=== PATIENT | male | born 1975 | race Caucasian/White ===

== ENCOUNTER 2024-05-30 13:12 | Inpatient (IN) ==
[2024-05-30] MEDS: Lactated Ringers 1000 ml BAG 1,000 ML IV ONE ×2 (14:01→14:04)
[2024-05-30] MEDS: Acetaminophen IV 1 GM/100ML 1,000 MG/100 ML BAG IV ONE (14:04)
[2024-05-30 14:21] LABS: Activated Partial Thrombo Time 31.3 seconds (26.0-38.0); INR 1.17 (0.85-1.14)
[2024-05-30 14:22] LABS: Hematocrit 39.2 % (38-53); Hemoglobin 13.6 g/dL (13.2-16.3); Mean Corpuscular Hemoglobin 28.4 pg (27-33); Mean Corpuscular Hgb Conc 34.6 g/dL (31-36); Red Blood Count 4.78 10^6/uL (4.06-5.63); Red Cell Distribution Width 14.8 % (12-17); White Blood Count 7.7 10^3/uL (3.6-10.2)
[2024-05-30 14:39] LABS: Urine Appearance Turbid; Urine Bacteria Absent /HPF (Absent); Urine Bilirubin Negative (Negative); Urine Blood 2+ (Negative); Urine Glucose 4+ (>=1000 mg/dL) (Negative); Urine Ketones 1+ (Negative); Urine Nitrite Negative (Negative); Urine Protein 1+ (>=30 mg/dL) (Negative); Urine Red Blood Cell Trace(0-2/hpf) /HPF (0-Trace); Urine Squamous Epithelial Cell Present /HPF (Absent); Urine Urobilinogen Negative (Negative); Urine White Blood Cell 1+(6-10/hpf) /HPF (0-Trace); Urine pH 5.5 (5.0-8.0)
[2024-05-30 14:49] LABS: Albumin/Globulin Ratio 1.3 (1-3); C Reactive Protein 220.41 mg/L (<8.01); Calcium 8.5 mg/dL (8.6-10.3); Creatinine, Serum 1.82 mg/dL (0.67-1.17); Globulin 3.1 g/dL (2-4); Total Bilirubin 1.9 mg/dL (0.2-1.0); Total Protein 7.1 g/dL (6.4-8.9); eGFR CKD-EPI 44.7 (>60)
[2024-05-30 15:08] LABS: ABS Lymphocytes 0.5 10^3/uL (1.0-4.8); ABS Monocytes 0.2 10^3/uL (0.0-1.1); Lymphocyte % 6.9 %; Mean Platelet Volume 8.6 fL (7.5-11.2); Platelet Count 100 10^3/uL (150-450)
[2024-05-30] MEDS: Piperacillin/Tazobac 3.375 BAG 3.375 GM/100 ML BAG IV ONE (15:35)
[2024-05-30 15:55] LABS: High Sensitivity Troponin 1 Hr 279 pg/mL (<20)
[2024-05-30] MEDS: Vancomycin 1,500 MG in NS 0.9% 250 ml 250 ML IVPB ONE (16:02)
[2024-05-30 16:30] LABS: Urine Color Light-Yellow
[2024-05-30 17:02] LABS: Hepatitis B Surface Antigen Nonreactive (Nonreactive)
[2024-05-30 17:07] LABS: Hepatitis A Ab IgM Negative (Negative)
[2024-05-30 17:08] LABS: Hepatitis B Core IgM Nonreactive (Nonreactive)
[2024-05-30 17:20] LABS: Hepatitis C Antibody Negative (Negative)
[2024-05-30] MEDS ORDERED: Ondansetron ODT 4 mg TAB 4 MG TAB SL PRN (17:54)
[2024-05-30] MEDS: ZOSYN 3.375 GM Q8H per EXTENDED INFUSION IV SCH (20:32)
[2024-05-30] MEDS: Lactated Ringers 1000 ml BAG 1,000 ML IV SCH (20:32)
[2024-05-30 20:46] LABS: Albumin 3.7 g/dL (3.5-5.7); Albumin/Globulin Ratio 1.3 (1-3); Calcium 8.4 mg/dL (8.6-10.3); Creatinine, Serum 1.96 mg/dL (0.67-1.17); Globulin 2.8 g/dL (2-4); Potassium 3.8 mmol/L (3.5-5.0); Total Bilirubin 2.3 mg/dL (0.2-1.0); Total Protein 6.5 g/dL (6.4-8.9); eGFR CKD-EPI 40.9 (>60)
[2024-05-30] MEDS ORDERED: Enoxaparin 30 MG/0.3 ML SYR SUBCUT SCH (21:00)
[2024-05-30 21:01] LABS: TSH Ultra Thyroid Stim Horm 0.51 mcIU/mL (0.34-5.60)
[2024-05-30 21:48] LABS: High Sensitivity Troponin 1 Hr 274 pg/mL (<20)
[2024-05-30] MEDS: Enoxaparin 40 MG/0.4 ML SYR SUBCUT SCH (22:05)
[2024-05-30] MEDS ORDERED: Zosyn per Pharmacy NOTE FOLLOW UP SCH (23:00)
[2024-05-30 23:30] LABS: High Sensitivity Troponin 3 Hr 313 pg/mL (<20)
[2024-05-31 06:12] LABS: Albumin 3.3 g/dL (3.5-5.7); Albumin/Globulin Ratio 1.2 (1-3); Calcium 7.9 mg/dL (8.6-10.3); Creatinine, Serum 1.98 mg/dL (0.67-1.17); Globulin 2.7 g/dL (2-4); HDL Cholesterol 6.4 mg/dL; Magnesium 1.8 mg/dL (1.9-2.7); Potassium 3.9 mmol/L (3.5-5.0); Total Bilirubin 1.2 mg/dL (0.2-1.0); eGFR CKD-EPI 40.4 (>60)
[2024-05-31 06:36] LABS: Hematocrit 34.4 % (38-53); Hemoglobin 11.9 g/dL (13.2-16.3); Mean Corpuscular Hemoglobin 28.2 pg (27-33); Mean Corpuscular Hgb Conc 34.7 g/dL (31-36); Mean Corpuscular Volume 81.4 fL (80-97); Red Blood Count 4.23 10^6/uL (4.06-5.63)
[2024-05-31 08:01] LABS: ABS Lymphocytes 0.8 10^3/uL (1.0-4.8); ABS Monocytes 0.5 10^3/uL (0.0-1.1); ABS Neutrophils 5.7 10^3/uL (1.5-7.6); Lymphocyte % 10.9 %; Mean Platelet Volume 9.2 fL (7.5-11.2); Nucleated Red Blood Cells % 0.1 %/100WBC (0.0-0.8); Platelet Count 73 10^3/uL (150-450)
[2024-05-31] MEDS: Sulfur Hexaflouride MICROSPHR 25 MG VIAL IV PRN (09:22)
[2024-05-31] MEDS: [UNRECOGNIZED DRUG - REMARK] PO SCH (09:27)
[2024-05-31] MEDS: Lactated Ringers 1000 ml BAG 1,000 ML IV SCH (11:17)
[2024-05-31] MEDS ORDERED: Dextrose 50% Syringe 50 ml 25 GM/50 ML SYRINGE IV PUSH PRN (13:28)
[2024-05-31] MEDS: ceFAZolin 2 GM PREMIX 2 GM/50 ML BAG IV SCH (14:56)
[2024-05-31 15:03] LABS: High Sensitivity Troponin 1 Hr 206 pg/mL (<20)
[2024-05-31 15:19] LABS: Creatinine, Serum 2.11 mg/dL (0.67-1.17); Potassium 3.6 mmol/L (3.5-5.0); eGFR CKD-EPI 37.4 (>60)
[2024-05-31] MEDS: Insulin GLARGINE 100 un/ml 10 ml VIAL SUBCUT SCH (20:52)
[2024-06-01 07:06] LABS: Calcium 7.9 mg/dL (8.6-10.3); Creatinine, Serum 1.98 mg/dL (0.67-1.17); Magnesium 1.9 mg/dL (1.9-2.7); Potassium 3.6 mmol/L (3.5-5.0); eGFR CKD-EPI 40.4 (>60)
[2024-06-01 07:14] LABS: Hematocrit 32.1 % (38-53); Hemoglobin 11.1 g/dL (13.2-16.3); Mean Corpuscular Hemoglobin 28.2 pg (27-33); Mean Corpuscular Hgb Conc 34.7 g/dL (31-36); Mean Corpuscular Volume 81.2 fL (80-97); Red Blood Count 3.96 10^6/uL (4.06-5.63); White Blood Count 8.7 10^3/uL (3.6-10.2)
[2024-06-01 07:52] LABS: Mean Platelet Volume 9.2 fL (7.5-11.2); Platelet Count 88 10^3/uL (150-450)
[2024-06-01] MEDS: ceFAZolin 2 GM PREMIX 2 GM/50 ML BAG IV SCH (10:20)
[2024-06-01 11:36] LABS: Urine Creatinine Concentration 58.12 mg/dL (20.00-370.00); Urine TP Creat Ratio 0.43 mg/mg
[2024-06-01] MEDS ORDERED: Flumazenil 0.5 mg/5 ml 0.1 MG/ML 5 ml VIAL ONE (13:23)
[2024-06-01] MEDS ORDERED: fentaNYL 100 mcg/2 ml 50 MCG/ML VIAL ONE (13:23)
[2024-06-01] MEDS ORDERED: Midazolam 5 mg/5 ml VIAL 1 mg/ml 5 ml VIAL (5 mg) ONE (13:23)
[2024-06-01] MEDS ORDERED: Naloxone 0.4 mg VIAL 0.4 mg/ml 1 ml VIAL ONE (13:23)
[2024-06-01] MEDS: fentaNYL 100 mcg/2 ml 50 MCG/ML VIAL IV SLOW PU ONE (14:54)
[2024-06-01] MEDS: Midazolam 10 mg/10 ml VIAL 1 mg/ml 10 ml VIAL (10 mg) IV SLOW PU ONE (14:56)
[2024-06-02 05:55] LABS: Hematocrit 32.1 % (38-53); Hemoglobin 11.4 g/dL (13.2-16.3); Mean Corpuscular Hgb Conc 35.3 g/dL (31-36); Mean Platelet Volume 9.3 fL (7.5-11.2); Platelet Count 117 10^3/uL (150-450); Red Blood Count 3.92 10^6/uL (4.06-5.63); White Blood Count 9.5 10^3/uL (3.6-10.2)
[2024-06-02 06:18] LABS: Calcium 7.9 mg/dL (8.6-10.3); Creatinine, Serum 1.92 mg/dL (0.67-1.17); Magnesium 1.9 mg/dL (1.9-2.7); Potassium 3.4 mmol/L (3.5-5.0); eGFR CKD-EPI 41.9 (>60)
[2024-06-02] MEDS: Potassium Chlor 20 meq TAB.ER PO SCH (08:48)
[2024-06-02] MEDS: Magnesium Sulfate IV 1GM/100ML 1 GM/100 ML BAG IV ONE (08:50)
[2024-06-03 05:50] LABS: Hematocrit 33.5 % (38-53); Hemoglobin 11.4 g/dL (13.2-16.3); Mean Corpuscular Hemoglobin 28.1 pg (27-33); Mean Corpuscular Hgb Conc 34.2 g/dL (31-36); Mean Corpuscular Volume 82.3 fL (80-97); Mean Platelet Volume 8.8 fL (7.5-11.2); Platelet Count 196 10^3/uL (150-450); Red Blood Count 4.07 10^6/uL (4.06-5.63); White Blood Count 9.7 10^3/uL (3.6-10.2)
[2024-06-03 06:08] LABS: Calcium 8.1 mg/dL (8.6-10.3); Creatinine, Serum 1.69 mg/dL (0.67-1.17); Magnesium 1.9 mg/dL (1.9-2.7); Potassium 3.9 mmol/L (3.5-5.0); eGFR CKD-EPI 48.9 (>60)
[2024-06-03 18:33] LABS: Anaplasma phagocytophilum Negative (Negative); B. miyamotoi PCR, B Negative (Negative); Babesia divergens/MO-1 Negative (Negative); Babesia ducani Negative (Negative); Ehrlichia chaffeensis Negative (Negative); Ehrlichia ewingii/canis Negative (Negative); Ehrlichia muris eauclairensis Negative (Negative)
[2024-06-04 06:45] LABS: ABS Basophils 0.1 10^3/uL (0.0-0.1); ABS Eosinophils 0.1 10^3/uL (0.0-0.5); ABS Lymphocytes 1.5 10^3/uL (1.0-4.8); ABS Monocytes 1.1 10^3/uL (0.0-1.1); ABS Neutrophils 7.3 10^3/uL (1.5-7.6); ABS Nucleated RBC 0.01 10^3/ul; Eosinophil % 1.3 %; Hematocrit 33.7 % (38-53); Hemoglobin 11.8 g/dL (13.2-16.3); Lymphocyte % 15.3 %; Mean Corpuscular Hemoglobin 28.7 pg (27-33); Mean Corpuscular Hgb Conc 34.9 g/dL (31-36); Mean Corpuscular Volume 82.2 fL (80-97); Mean Platelet Volume 8.4 fL (7.5-11.2); Nucleated Red Blood Cells % 0.1 %/100WBC (0.0-0.8); Platelet Count 306 10^3/uL (150-450); Red Cell Distribution Width 14.8 % (12-17); White Blood Count 10.1 10^3/uL (3.6-10.2)
[2024-06-04 07:02] LABS: Albumin 3.3 g/dL (3.5-5.7); Albumin/Globulin Ratio 1.2 (1-3); Calcium 8.5 mg/dL (8.6-10.3); Creatinine, Serum 1.71 mg/dL (0.67-1.17); Globulin 2.7 g/dL (2-4); Potassium 4.2 mmol/L (3.5-5.0); Total Bilirubin 0.7 mg/dL (0.2-1.0); eGFR CKD-EPI 48.2 (>60)
[2024-06-04] MEDS: Insulin GLARGINE 100 un/ml 10 ml VIAL SUBCUT SCH (21:55)
[2024-06-05] MEDS: Empagliflozin 25 MG TAB PO SCH (09:02)
[2024-06-05 13:46] VITALS: BP 147/97
== END 2024-06-05 14:40 | disposition home or self-care (01) | DRG 871 ==
LOC: EDHOLD 13:12 → ED 13:12 → SUATTDRO 17:03 → MEDTELE 20:19 → SUATTDRO 05-31 12:00
PROVIDERS: ADMIT Student in an Organized Health Care Education/Training Program; ATTEND Internal Medicine